=== PATIENT | female | born 1945 | race Caucasian/White ===

== ENCOUNTER → 2025-04-13 12:37 | Outpatient (REF) | payer MEDICARE, OTHER, SELFPAY | LOC: HWRAD 12:37 | PROVIDERS: ATTENDING PHYSICIAN Family Medicine | DX: K59.09 Other constipation (principal) | CPT/HCPCS: 74022 ==

== ENCOUNTER 2025-06-16 06:24 | Day surgery (SDC) | payer MEDICARE, OTHER, SELFPAY | END 2025-06-16 12:20 | disposition home or self-care (01) | LOC: GI 06:24 | PROVIDERS: ATTENDING PHYSICIAN Internal Medicine | DX: Z12.11 Encounter for screening for malignant neoplasm of colon (principal); K64.8 Other hemorrhoids; K31.7 Polyp of stomach and duodenum; K31.89 Other diseases of stomach and duodenum; K31.A0 Gastric intestinal metaplasia, unspecified; D12.3 Benign neoplasm of transverse colon; K31.A12 Gastric intestinal metaplasia without dysplasia, involving the body (corpus) | CPT/HCPCS: 45380; 43239; 88305; 88342 ==

== ENCOUNTER → 2025-07-18 15:07 | Outpatient (REF) | payer MEDICARE, OTHER, SELFPAY | LOC: HWRAD 15:07 | PROVIDERS: ATTENDING PHYSICIAN Internal Medicine; FAMILY PHYSICIAN Internal Medicine | DX: R15.1 Fecal smearing (principal); K59.04 Chronic idiopathic constipation | CPT/HCPCS: 74019 ==